=== PATIENT | male | born 1980 | race Caucasian/White ===

== ENCOUNTER 2020-10-14 17:50 | Inpatient (IN) | payer OTHER, SELFPAY ==
[2020-10-14] MEDS ORDERED: Ondansetron PF 4 MG/2 ML Vial SLOW IVP PRN (19:57)
[2020-10-14] MEDS ORDERED: Fentanyl 100 MCG/2 ML VIAL SLOW IVP PRN (19:57)
[2020-10-14] MEDS ORDERED: Milk Of Magnesia 30 ML UDCUP PO PRN (19:57)
[2020-10-14] MEDS ORDERED: traMADol HCl 50 MG TAB PO PRN (19:57)
[2020-10-14] MEDS ORDERED: Communication Order-Pharmacy FS SCH (20:00)
[2020-10-14] MEDS: HYDROcodone/Acetaminophen 5/325 mg Tablet PO PRN ×2 (20:38→23:57)
[2020-10-14 20:42] VITALS: BMI 25.7
[2020-10-15 05:05] LABS: #Eosinphils 0.7 thou/uL (0.0-0.7); #Lymphocytes 2.3 thou/uL (1.20-3.40); #Monocytes 1.2 thou/uL (0.11-0.59); #Neutrophils 10.6 thou/uL (1.40-6.50); %Basophils 0.3 % (0.0-1.0); %Eosinophils 4.5 % (0.0-10.0); %Lymphocytes 15.4 % (21.0-51.0); %Neutrophils 71.8 % (42.0-75.0); Hemoglobin 12.9 g/dL (14.0-18.0); Mean Corpuscular HGB CONC 31.9 g/dL (32.0-36.0); Mean Corpuscular Hemoglobin 29.8 pg (27.0-31.0); Mean Corpuscular Volume 93.4 fL (78.0-98.0); Mean Platelet Volume 7.1 fL (7.4-10.4); Platelet Count 256 thou/uL (130-400); RBC Distribution Width 12.3 % (11.5-14.5); Red Blood Cell (RBC) Count 4.32 mill/uL (4.70-6.10); White Blood Cell (WBC) Count 14.7 thou/uL (4.8-10.8)
[2020-10-15] MEDS: Vancomycin 1.5 GRAM/300 ML BAG 1.5 GM in Premix Bag 1 BAG IVPB SCH ×2 (05:56→19:52)
[2020-10-15] MEDS: HYDROcodone/Acetaminophen 5/325 mg Tablet PO PRN ×2 (05:57→10:10)
[2020-10-15] MEDS ORDERED: CEFAZOLIN 2 GM in Premix Bag 1 BAG IVPB SCH (07:45)
[2020-10-15] MEDS ORDERED: Fentanyl 100 MCG/2 ML VIAL ONE ×2 (15:12→18:16)
[2020-10-15] MEDS ORDERED: PROPOFOL 200 MG/20 ML VIAL ONE (18:28)
[2020-10-15] MEDS ORDERED: Dexamethasone 20 MG/5 ML VIAL ONE (18:28)
[2020-10-15] MEDS ORDERED: Ketorolac Tromethamine 30 MG/ML VIAL ONE (18:28)
[2020-10-15] MEDS ORDERED: Lidocaine 1% PF 5 ML VIAL ONE (18:28)
[2020-10-15] MEDS ORDERED: Ondansetron PF 4 MG/2 ML Vial ONE (18:28)
[2020-10-15] MEDS ORDERED: HYDROmorphone 2 MG/ML VIAL ONE (18:45)
[2020-10-15] MEDS ORDERED: Bupivacaine PF 0.5% 30 ML VIAL ONE (19:09)
[2020-10-15] MEDS ORDERED: HYDROmorphone 2 MG/ML VIAL SLOW IVP PRN (19:30)
[2020-10-15] MEDS ORDERED: Promethazine HCl 25 MG/ML VIAL IM PRN (19:30)
[2020-10-15] MEDS ORDERED: Promethazine HCl 25 MG/ML VIAL IVPB PRN (19:30)
[2020-10-16 06:06] LABS: Vancomycin, Trough 7.5 ug/mL
[2020-10-16] MEDS: Vancomycin 1.5 GRAM/300 ML BAG 1.5 GM in Premix Bag 1 BAG IVPB SCH ×2 (06:18→18:41)
[2020-10-16] MEDS: HYDROcodone/Acetaminophen 5/325 mg Tablet PO PRN ×2 (11:28→18:11)
[2020-10-16 17:13] LABS: HIV (1/2) Antibody/Antigen Non-Reactive (NonReactive); HIV 1/2 INDEX 0.07 S/CO (<1.00); Syphilis Antibody Nonreactive (Nonreactive); Syphilis Antibody Index 0.04 S/CO (<1.00 Non-Reactive)
[2020-10-17 05:18] LABS: Vancomycin, Trough 9.4 ug/mL
[2020-10-17] MEDS ORDERED: Vancomycin 1.5 GRAM/300 ML BAG 1.5 GM in Premix Bag 1 BAG IVPB SCH (06:00)
[2020-10-17] MEDS: HYDROcodone/Acetaminophen 5/325 mg Tablet PO PRN ×2 (09:41→17:13)
[2020-10-17] MEDS: Clindamycin 150 MG CAP PO SCH ×3 (13:22→20:27)
[2020-10-17 21:01] LABS: Sodium 140 mmol/L (136-145)
[2020-10-17 21:02] LABS: ALT (SGPT) 15 U/L (8-55); AST (SGOT) 11 U/L (5-34); Albumin 3.4 g/dL (3.5-5.0); Alkaline Phosphatase 51 U/L (40-110); Anion Gap 11 mmol/L (10-20); BUN (Urea Nitrogen) 11 mg/dL (8.9-20.6); Bilirubin, Total 0.2 mg/dL (0.2-1.2); Calc. Creatinine Clearance 151 mL/min (70-130); Calcium 8.7 mg/dL (7.8-10.44); Carbon Dioxide 30 mmol/L (22-29); Chloride 103 mmol/L (98-107); Globulin 2.7 g/dL (2.4-3.5); Glucose 141 mg/dL (70-105); Potassium 3.6 mmol/L (3.5-5.1); Protein, Total 6.1 g/dL (6.0-8.3)
[2020-10-17 21:31] LABS: Vitamin B12 255 pg/mL (211-911)
[2020-10-17 22:13] LABS: Amphetamine Not Detected (NotDetected); Barbiturates Screen Not Detected (NotDetected); Benzodiazepine Screen Not Detected (NotDetected); Cocaine Metabolite Screen Not Detected (NotDetected); Methadone Not Detected (NotDetected); Methamphetamine Not Detected (NotDetected); Opiate Screen Detected (NotDetected); Oxycodone Screen Not Detected (NotDetected); Phencyclidine (PCP) Not Detected (NotDetected); THC/Cannabinoid Screen Not Detected (NotDetected); Tricyclic Screen Not Detected (NotDetected)
[2020-10-18 01:18] LABS: Hep A IgM AB NonReactive (NonReactive); Hep A IgM S/CO 0.15 S/CO (0-0.79); Hep B Surf AB NonReactive (NonReactive)
[2020-10-18 01:19] LABS: HBSAB Concentration 0.61 mIU/mL; HBSAg Index 0.22 S/CO (0-0.99); Hep B Surf Ag NonReactive S/CO (NonReactive); Hep C IgG Ab NonReactive (NonReactive); Hep C Index 0.08 S/CO (0-0.79)
[2020-10-18] MEDS: HYDROcodone/Acetaminophen 5/325 mg Tablet PO PRN ×2 (08:56→16:51)
[2020-10-18] MEDS: Clindamycin 150 MG CAP PO SCH ×4 (09:00→20:57)
[2020-10-18] MEDS ORDERED: Recombivax (HEP-B) 5 MCG/0.5 ML VIAL IM ONE (09:04)
[2020-10-18] MEDS ORDERED: CEFAZOLIN 2 GM in Premix Bag 1 BAG IVPB SCH (10:00)
[2020-10-19] MEDS: Clindamycin 150 MG CAP PO SCH ×4 (08:10→20:27)
[2020-10-19] MEDS ORDERED: Famotidine/PF 20 mg/2ml Vial ONE (13:33)
[2020-10-19] MEDS ORDERED: Fentanyl 100 MCG/2 ML VIAL ONE ×3 (13:33→15:16)
[2020-10-19] MEDS ORDERED: Midazolam HCl 2 mg/2 ml Vial ONE (13:34)
[2020-10-19] MEDS ORDERED: Dexamethasone 20 MG/5 ML VIAL ONE (13:40)
[2020-10-19] MEDS ORDERED: Metoclopramide HCl 10 MG/2 ML VIAL ONE (13:40)
[2020-10-19] MEDS ORDERED: Ondansetron PF 4 MG/2 ML Vial ONE (13:40)
[2020-10-19] MEDS ORDERED: Lidocaine 1% PF 5 ML VIAL ONE (13:40)
[2020-10-19] MEDS ORDERED: PROPOFOL 200 MG/20 ML VIAL ONE (13:40)
[2020-10-19] MEDS ORDERED: Ketorolac Tromethamine 30 MG/ML VIAL ONE (13:40)
[2020-10-19] MEDS ORDERED: Neomycin-Polymyxin 1 ML AMP ONE (14:27)
[2020-10-19] MEDS ORDERED: Bacitracin Zinc Ointment 30 gm TUBE ONE (14:27)
[2020-10-19] MEDS ORDERED: Meperidine HCl/PF 25 MG/ML VIAL ONE (14:49)
[2020-10-19] MEDS ORDERED: Meperidine HCl/PF 25 MG/ML VIAL SLOW IVP PRN (14:55)
[2020-10-19] MEDS ORDERED: PACU-Morphine 4MG/ML VIAL SLOW IVP PRN (14:55)
[2020-10-19] MEDS ORDERED: Promethazine HCl 25 MG/ML VIAL IM PRN (14:55)
[2020-10-19] MEDS ORDERED: Promethazine HCl 25 MG/ML VIAL IVPB PRN (14:55)
[2020-10-19] MEDS ORDERED: Ondansetron HCl/PF 4 MG/2 ML Vial IVP PRN (14:55)
[2020-10-20] MEDS: HYDROcodone/Acetaminophen 5/325 mg Tablet PO PRN ×3 (08:44→19:35)
[2020-10-20] MEDS: Clindamycin 150 MG CAP PO SCH ×4 (08:45→20:57)
[2020-10-20] MEDS ORDERED: Nicotine 21 MG PATCH TD SCH (11:45)
[2020-10-21] MEDS ORDERED: Neomycin-Polymyxin 1 ML AMP ONE ×2 (07:45→08:04)
[2020-10-21] MEDS ORDERED: CEFAZOLIN 2 GM in Premix Bag 1 BAG IVPB SCH (08:00)
[2020-10-21] MEDS ORDERED: Lidocaine 1% PF 5 ML VIAL ONE (08:02)
[2020-10-21] MEDS ORDERED: PROPOFOL 200 MG/20 ML VIAL ONE (08:02)
[2020-10-21] MEDS ORDERED: Ondansetron PF 4 MG/2 ML Vial ONE (08:02)
[2020-10-21] MEDS ORDERED: Ketorolac Tromethamine 30 MG/ML VIAL ONE (08:02)
[2020-10-21] MEDS ORDERED: Dexamethasone 20 MG/5 ML VIAL ONE (08:02)
[2020-10-21] MEDS ORDERED: Fentanyl 100 MCG/2 ML VIAL ONE (09:06)
[2020-10-21 10:42] LABS: #Eosinphils 0.3 thou/uL (0.0-0.7); #Lymphocytes 1.8 thou/uL (1.20-3.40); #Monocytes 0.4 thou/uL (0.11-0.59); #Neutrophils 7.1 thou/uL (1.40-6.50); %Basophils 0.4 % (0.0-1.0); %Eosinophils 2.9 % (0.0-10.0); %Lymphocytes 19.1 % (21.0-51.0); %Neutrophils 73.7 % (42.0-75.0); Hemoglobin 9.9 g/dL (14.0-18.0); Mean Corpuscular HGB CONC 33.6 g/dL (32.0-36.0); Mean Corpuscular Hemoglobin 32.1 pg (27.0-31.0); Mean Corpuscular Volume 95.5 fL (78.0-98.0); Mean Platelet Volume 6.6 fL (7.4-10.4); Platelet Count 217 thou/uL (130-400); Red Blood Cell (RBC) Count 3.09 mill/uL (4.70-6.10); White Blood Cell (WBC) Count 9.7 thou/uL (4.8-10.8)
[2020-10-21] MEDS: Clindamycin 150 MG CAP PO SCH ×4 (10:56→21:26)
[2020-10-21] MEDS: Nicotine 21 MG PATCH TD SCH (10:56)
[2020-10-21] MEDS: Acetaminophen 325 MG TAB PO PRN (17:20)
[2020-10-22] MEDS: HYDROcodone/Acetaminophen 5/325 mg Tablet PO PRN ×2 (09:21→17:15)
[2020-10-22] MEDS: Clindamycin 150 MG CAP PO SCH ×4 (09:21→21:13)
[2020-10-22] MEDS: Nicotine 21 MG PATCH TD SCH (09:23)
[2020-10-23] MEDS: HYDROcodone/Acetaminophen 5/325 mg Tablet PO PRN ×2 (08:24→17:08)
[2020-10-23] MEDS: Clindamycin 150 MG CAP PO SCH ×4 (08:24→20:41)
[2020-10-23] MEDS: Nicotine 21 MG PATCH TD SCH (08:25)
[2020-10-24] MEDS: Clindamycin 150 MG CAP PO SCH ×4 (08:48→20:41)
[2020-10-24] MEDS: Nicotine 21 MG PATCH TD SCH (08:48)
[2020-10-24] MEDS: HYDROcodone/Acetaminophen 5/325 mg Tablet PO PRN ×3 (08:57→20:43)
[2020-10-25] MEDS: Acetaminophen 325 MG TAB PO PRN ×2 (09:26→20:36)
[2020-10-25] MEDS: Clindamycin 150 MG CAP PO SCH ×4 (09:26→20:36)
[2020-10-25] MEDS: Nicotine 21 MG PATCH TD SCH (09:27)
[2020-10-25] MEDS ORDERED: CEFAZOLIN 2 GM in Premix Bag 1 BAG IVPB SCH (11:30)
[2020-10-26] MEDS ORDERED: Neomycin-Polymyxin 1 ML AMP ONE (06:43)
[2020-10-26] MEDS ORDERED: Midazolam HCl 2 mg/2 ml Vial ONE (07:08)
[2020-10-26] MEDS ORDERED: Fentanyl 100 MCG/2 ML VIAL ONE ×2 (07:08→08:38)
[2020-10-26] MEDS ORDERED: Lidocaine 1% PF 5 ML VIAL ONE (07:35)
[2020-10-26] MEDS ORDERED: PROPOFOL 200 MG/20 ML VIAL ONE (07:35)
[2020-10-26] MEDS ORDERED: Ondansetron PF 4 MG/2 ML Vial ONE (07:35)
[2020-10-26] MEDS ORDERED: Succinylcholine 200 MG/10 ml SYRINGE FS ONE (07:35)
[2020-10-26] MEDS ORDERED: Promethazine HCl 25 MG/ML VIAL IVPB PRN (08:38)
[2020-10-26] MEDS ORDERED: Ondansetron HCl/PF 4 MG/2 ML Vial IVP PRN (08:38)
[2020-10-26] MEDS ORDERED: Meperidine HCl/PF 25 MG/ML VIAL SLOW IVP PRN (08:38)
[2020-10-26] MEDS ORDERED: Ketorolac Tromethamine 30 MG/ML VIAL IVP PRN (08:38)
[2020-10-26] MEDS ORDERED: Meperidine HCl/PF 25 MG/ML VIAL ONE (08:43)
[2020-10-26] MEDS ORDERED: Ketorolac Tromethamine 30 MG/ML VIAL ONE (08:43)
[2020-10-26] MEDS: Nicotine 21 MG PATCH TD SCH (09:36)
[2020-10-26] MEDS: Clindamycin 150 MG CAP PO SCH ×4 (09:36→20:35)
[2020-10-26] MEDS: Acetaminophen 325 MG TAB PO PRN (16:54)
[2020-10-27] MEDS: Acetaminophen 325 MG TAB PO PRN (01:30)
[2020-10-27] MEDS: Clindamycin 150 MG CAP PO SCH ×4 (10:03→21:54)
[2020-10-27] MEDS: Nicotine 21 MG PATCH TD SCH (10:04)
[2020-10-28] MEDS: Nicotine 21 MG PATCH TD SCH (09:23)
[2020-10-28] MEDS: Acetaminophen 325 MG TAB PO PRN (11:22)
[2020-10-29] MEDS: Nicotine 21 MG PATCH TD SCH (08:15)
[2020-10-29] MEDS: Acetaminophen 325 MG TAB PO PRN ×2 (08:18→21:02)
[2020-10-30] MEDS: Nicotine 21 MG PATCH TD SCH (08:18)
[2020-10-30 19:29] LABS: SARS-CoV-2 NAA Rapid Test Not Detected (NotDetected)
[2020-10-30] MEDS ORDERED: HYDROmorphone 0.5 MG/0.5 ML SYRINGE ONE (20:47)
[2020-10-30] MEDS ORDERED: Fentanyl 100 MCG/2 ML VIAL ONE (20:47)
[2020-10-30] MEDS ORDERED: Bupivacaine PF 0.5% 30 ML VIAL ONE (20:50)
[2020-10-30] MEDS ORDERED: Bacitracin Zinc Ointment 30 gm TUBE ONE (20:51)
[2020-10-30] MEDS ORDERED: Neomycin-Polymyxin 1 ML AMP ONE (20:51)
[2020-10-30] MEDS ORDERED: Thrombin 5000 UNITS/5 ML VIAL ONE (20:51)
[2020-10-30] MEDS ORDERED: Lidocaine 2% PF 5 ML VIAL ONE (21:16)
[2020-10-30] MEDS ORDERED: Ketorolac Tromethamine 30 MG/ML VIAL ONE (21:16)
[2020-10-30] MEDS ORDERED: Ondansetron PF 4 MG/2 ML Vial ONE (21:16)
[2020-10-30] MEDS ORDERED: Dexamethasone 20 MG/5 ML VIAL ONE (21:16)
[2020-10-30] MEDS ORDERED: diphenhydrAMINE 50 MG/ML VIAL ONE (21:16)
[2020-10-30] MEDS ORDERED: Rocuronium Bromide 10 MG/ML (10ML VIAL) ONE (21:16)
[2020-10-30] MEDS ORDERED: ePHEDrine 50 MG/ML VIAL ONE (21:16)
[2020-10-30] MEDS ORDERED: PROPOFOL 200 MG/20 ML VIAL ONE (21:16)
[2020-10-30] MEDS ORDERED: Mineral Oil Sterile 10ML 10 ML UDCUP ONE (21:40)
[2020-10-30] MEDS ORDERED: HYDROmorphone 2 MG/ML VIAL SLOW IVP PRN (23:35)
[2020-10-30] MEDS ORDERED: Ondansetron HCl/PF 4 MG/2 ML Vial IVP PRN (23:35)
[2020-10-30] MEDS ORDERED: Meperidine HCl/PF 25 MG/ML VIAL SLOW IVP PRN (23:35)
[2020-10-30] MEDS ORDERED: Morphine Sulfate 2 MG/ML SYRINGE SLOW IVP PRN (23:35)
[2020-10-30] MEDS ORDERED: Promethazine HCl 25 MG/ML VIAL IM PRN (23:35)
[2020-10-30] MEDS ORDERED: Promethazine HCl 25 MG/ML VIAL IVPB PRN (23:35)
[2020-10-31] MEDS ORDERED: Fentanyl 100 MCG/2 ML VIAL ONE (00:13)
[2020-10-31] MEDS: Acetaminophen 325 MG TAB PO PRN (06:18)
[2020-10-31] MEDS: Nicotine 21 MG PATCH TD SCH (08:58)
[2020-10-31] MEDS ORDERED: HYDROcodone/Acetaminophen 7.5/325 mg Tablet PO PRN (09:49)
[2020-10-31] MEDS: HYDROcodone/Acetaminophen 7.5/325 mg Tablet PO PRN ×3 (10:19→21:37)
[2020-11-01] MEDS: Nicotine 21 MG PATCH TD SCH (08:47)
[2020-11-01] MEDS ORDERED: Ibuprofen 600 MG TAB PO PRN (12:43)
[2020-11-02] MEDS: Nicotine 21 MG PATCH TD SCH (10:05)
[2020-11-02 15:00] VITALS: BP 124/81; TEMP 97.7
== END 2020-11-02 18:19 | disposition home or self-care (01) | DRG 513 ==
LOC: OBSVTOIN 17:50 → ONC 17:50 → SURG B 10-23 22:37
PROVIDERS: ADMIT Orthopaedic Surgery; ATTEND Orthopaedic Surgery
PROC: 0PBR0ZZ Excision of Right Thumb Phalanx, Open Approach (ICD-10-PCS; 2020-10-15)
PROC: 0LB70ZZ Excision of Right Hand Tendon, Open Approach (ICD-10-PCS; principal; 2020-10-19)
PROC: 0H9FXZZ Drainage of Right Hand Skin, External Approach (ICD-10-PCS; 2020-10-21)
PROC: 0JDJ0ZZ Extraction of Right Hand Subcutaneous Tissue and Fascia, Open Approach (ICD-10-PCS; 2020-10-26)
DX: M65.141 Other infective (teno)synovitis, right hand (principal); L02.511 Cutaneous abscess of right hand; B95.62 Methicillin resistant Staphylococcus aureus infection as the cause of diseases classified elsewhere; Z20.822 Contact with and (suspected) exposure to COVID-19; F17.210 Nicotine dependence, cigarettes, uncomplicated; F15.10 Other stimulant abuse, uncomplicated; F12.10 Cannabis abuse, uncomplicated; F20.9 Schizophrenia, unspecified; Z28.21 Immunization not carried out because of patient refusal; Z59.0 Homelessness; Z81.8 Family history of other mental and behavioral disorders; Z83.0 Family history of human immunodeficiency virus [HIV] disease; Z83.1 Family history of other infectious and parasitic diseases
CPT/HCPCS: 36415; 80053; 80202; 80306; 82607; 82746; 84207; 84425; 84443; 85025; 86706; 86709; 86780; 86803; 87070; 87077; 87186; 87205; 87340; 87389; C9363-KX-JC; J0690; J1100; J1170; J1200; J1885; J2001; J2175; J2250; J2405; J2704; J2765; J3010; J3370; J3490; S0020; S0028; U0002

== ENCOUNTER 2020-11-09 07:45 | Emergency (ER) | payer OTHER ==
[2020-11-09 09:56] LABS: #Basophils 0.1 thou/uL (0.0-0.2); #Eosinphils 0.4 thou/uL (0.0-0.7); #Monocytes 0.6 thou/uL (0.11-0.59); #Neutrophils 3.4 thou/uL (1.40-6.50); %Eosinophils 6.7 % (0.0-10.0); %Lymphocytes 31.2 % (21.0-51.0); %Monocytes 8.8 % (0.0-10.0); %Neutrophils 52.3 % (42.0-75.0); Hemoglobin 12.7 g/dL (14.0-18.0); Mean Corpuscular Hemoglobin 31.1 pg (27.0-31.0); Mean Corpuscular Volume 91.5 fL (78.0-98.0); Mean Platelet Volume 7.5 fL (7.4-10.4); Platelet Count 182 thou/uL (130-400); RBC Distribution Width 12.3 % (11.5-14.5); Red Blood Cell (RBC) Count 4.07 mill/uL (4.70-6.10); White Blood Cell (WBC) Count 6.5 thou/uL (4.8-10.8)
== END 2020-11-09 11:39 | disposition home or self-care (01) ==
LOC: ERS 07:45
DX: Z48.00 Encounter for change or removal of nonsurgical wound dressing (principal); F17.210 Nicotine dependence, cigarettes, uncomplicated
CPT/HCPCS: 36415; 85025; 99283

== ENCOUNTER 2020-11-13 08:53 | Observation (INO) | payer OTHER, SELFPAY ==
[2020-11-13 10:11] LABS: #Basophils 0.1 thou/uL (0.0-0.2); #Eosinphils 0.3 thou/uL (0.0-0.7); #Lymphocytes 2.3 thou/uL (1.20-3.40); #Monocytes 1.2 thou/uL (0.11-0.59); #Neutrophils 9.9 thou/uL (1.40-6.50); %Basophils 0.5 % (0.0-1.0); %Eosinophils 1.9 % (0.0-10.0); %Lymphocytes 16.6 % (21.0-51.0); %Monocytes 8.9 % (0.0-10.0); %Neutrophils 72.2 % (42.0-75.0); Hemoglobin 15.5 g/dL (14.0-18.0); Mean Corpuscular HGB CONC 34.7 g/dL (32.0-36.0); Mean Corpuscular Hemoglobin 30.9 pg (27.0-31.0); Mean Corpuscular Volume 88.9 fL (78.0-98.0); Mean Platelet Volume 7.3 fL (7.4-10.4); Platelet Count 229 thou/uL (130-400); RBC Distribution Width 12.5 % (11.5-14.5); Red Blood Cell (RBC) Count 5.03 mill/uL (4.70-6.10); White Blood Cell (WBC) Count 13.7 thou/uL (4.8-10.8)
[2020-11-13 12:19] LABS: SARS-CoV-2 NAA Rapid Test Not Detected (NotDetected)
[2020-11-13] MEDS ORDERED: Fentanyl 100 MCG/2 ML VIAL ONE (14:20)
[2020-11-13] MEDS ORDERED: Bupivacaine PF 0.5% 30 ML VIAL ONE (14:43)
[2020-11-13] MEDS ORDERED: Neomycin-Polymyxin 1 ML AMP ONE (14:43)
[2020-11-13] MEDS ORDERED: Bacitracin Zinc Ointment 30 gm TUBE ONE (14:43)
[2020-11-13] MEDS ORDERED: Famotidine/PF 20 mg/2ml Vial ONE (14:43)
[2020-11-13] MEDS ORDERED: Thrombin 5000 UNITS/5 ML VIAL ONE (14:43)
[2020-11-13] MEDS ORDERED: Midazolam HCl 2 mg/2 ml Vial ONE (14:44)
[2020-11-13 14:46] LABS: ALT (SGPT) 34 U/L (8-55); AST (SGOT) 74 U/L (5-34); Albumin 4.7 g/dL (3.5-5.0); Alkaline Phosphatase 61 U/L (40-110); Anion Gap 16 mmol/L (10-20); BUN (Urea Nitrogen) 45 mg/dL (8.9-20.6); Bilirubin, Total 0.9 mg/dL (0.2-1.2); Calc. Creatinine Clearance 0 mL/min (70-130); Calcium 9.7 mg/dL (7.8-10.44); Carbon Dioxide 25 mmol/L (22-29); Chloride 97 mmol/L (98-107); Globulin 2.9 g/dL (2.4-3.5); Glucose 94 mg/dL (70-105); Potassium 3.4 mmol/L (3.5-5.1); Protein, Total 7.6 g/dL (6.0-8.3); Sodium 135 mmol/L (136-145)
[2020-11-13] MEDS ORDERED: Dexamethasone 20 MG/5 ML VIAL ONE (14:59)
[2020-11-13] MEDS ORDERED: PROPOFOL 200 MG/20 ML VIAL ONE (14:59)
[2020-11-13] MEDS ORDERED: Ketorolac Tromethamine 30 MG/ML VIAL ONE (14:59)
[2020-11-13] MEDS ORDERED: Ondansetron PF 4 MG/2 ML Vial ONE (14:59)
[2020-11-13] MEDS ORDERED: Lidocaine 1% PF 5 ML VIAL ONE (14:59)
[2020-11-13] MEDS ORDERED: traMADol HCl 50 MG TAB PO PRN (15:19)
[2020-11-13] MEDS ORDERED: Milk Of Magnesia 30 ML UDCUP PO PRN (15:19)
[2020-11-13] MEDS ORDERED: Promethazine HCl 25 MG/ML VIAL IM PRN ×2 (15:19→15:52)
[2020-11-13] MEDS ORDERED: Bisacodyl 10 MG SUPP PR PRN (15:19)
[2020-11-13] MEDS ORDERED: Ondansetron PF 4 MG/2 ML Vial IVP PRN (15:19)
[2020-11-13] MEDS ORDERED: Morphine 2 MG/ML VIAL SLOW IVP PRN (15:19)
[2020-11-13] MEDS ORDERED: Meperidine HCl/PF 25 MG/ML VIAL IM PRN (15:22)
[2020-11-13] MEDS ORDERED: Ketorolac Tromethamine 30 MG/ML VIAL IVP PRN (15:22)
[2020-11-13] MEDS ORDERED: Vancomycin 1 GM in Premix Bag 1 BAG IVPB SCH (15:30)
[2020-11-13] MEDS ORDERED: Mineral Oil Sterile 10 ML VIAL ONE (15:50)
[2020-11-13] MEDS ORDERED: HYDROmorphone 2 MG/ML VIAL SLOW IVP PRN (15:52)
[2020-11-13] MEDS ORDERED: Ondansetron HCl/PF 4 MG/2 ML Vial IVP PRN (15:52)
[2020-11-13] MEDS ORDERED: Promethazine HCl 25 MG/ML VIAL IVPB PRN (15:52)
[2020-11-13] MEDS ORDERED: Meperidine HCl/PF 25 MG/ML VIAL SLOW IVP PRN (15:52)
[2020-11-13] MEDS ORDERED: Midazolam HCl 2 mg/2 ml Vial SLOW IVP PRN (16:29)
[2020-11-13] MEDS ORDERED: VANCOMYCIN 2 GRAM/400 ML BAG 2 GM in Premix Bag 1 BAG IVPB SCH ×3 (16:45→18:30)
[2020-11-13] MEDS ORDERED: Haloperidol Lactate 5 MG/ML VIAL IM PRN (16:46)
[2020-11-13 18:50] VITALS: BMI 26.9
[2020-11-13] MEDS: Aspirin 81 mg Enteric Coated Tablet PO SCH (20:24)
[2020-11-13] MEDS: HYDROcodone/Acetaminophen 5/325 mg Tablet PO PRN (20:25)
[2020-11-14] MEDS ORDERED: Vancomycin 1.5 GRAM/300 ML BAG 1.5 GM in Premix Bag 1 BAG IVPB SCH ×2 (01:00→02:00)
[2020-11-14] MEDS ORDERED: Vancomycin 1.5 GRAM/300 ML BAG 1 GM in Premix Bag 1 BAG IVPB SCH (01:00)
[2020-11-14] MEDS: HYDROcodone/Acetaminophen 5/325 mg Tablet PO PRN ×3 (04:11→12:43)
[2020-11-14] MEDS: Aspirin 81 mg Enteric Coated Tablet PO SCH (09:18)
[2020-11-14] MEDS ORDERED: TETANUS AND DIPHTHERIA TOX/PF 0.5 ML DISP.SYRIN IM SCH (15:30)
[2020-11-14 16:27] VITALS: BP 134/87; TEMP 97.7
[2020-11-14] MEDS ORDERED: VANCOMYCIN 2 GRAM/400 ML BAG 2 GM in Premix Bag 1 BAG IVPB SCH (18:00)
== END 2020-11-14 16:52 | disposition home or self-care (01) ==
LOC: ERS 08:53 → SURG A 15:19 → SJJU 17:21
PROVIDERS: ADMIT Orthopaedic Surgery Hand Surgery; ATTEND Orthopaedic Surgery Hand Surgery
PROC: 0HR Skin and Breast, Replacement (ICD-10-PCS; principal; 2020-11-13)
DX: T85.69 Other mechanical complication of other specified internal prosthetic devices, implants and grafts (principal); F20.0 Paranoid schizophrenia; F12.10 Cannabis abuse, uncomplicated; F15.10 Other stimulant abuse, uncomplicated; F17.210 Nicotine dependence, cigarettes, uncomplicated; Z59.0 Homelessness; Z20.822 Contact with and (suspected) exposure to COVID-19
CPT/HCPCS: 36415; 80053; 85025; 96374; C9363-KX-JC; G0378; J0690; J1100; J1885; J2250; J2405; J2704; J3010; J3370; S0020; S0028; U0002

== ENCOUNTER 2020-11-23 17:43 | Emergency (ER) | payer OTHER ==
[2020-11-23] MEDS ORDERED: Bacitracin 1 PK ONE (20:13)
== END 2020-11-23 20:45 | disposition home or self-care (01) ==
LOC: ERS 17:43
DX: M65.841 Other synovitis and tenosynovitis, right hand (principal); F17.210 Nicotine dependence, cigarettes, uncomplicated; Z79.899 Other long term (current) drug therapy
CPT/HCPCS: 99283

== ENCOUNTER 2020-11-28 10:38 | Outpatient (CLI) | payer SELFPAY ==
[2020-11-28 19:28] LABS: SARS-CoV-2 PCR by NAA Not Detected (NotDetected)
== END 2020-11-28 10:39 | disposition home or self-care (01) ==
LOC: LABBT 10:38
PROVIDERS: ATTEND Orthopaedic Surgery Hand Surgery
DX: Z01.812 Encounter for preprocedural laboratory examination (principal); S61.001A Unspecified open wound of right thumb without damage to nail, initial encounter; Z20.822 Contact with and (suspected) exposure to COVID-19
CPT/HCPCS: U0003; U0005

== ENCOUNTER 2020-12-03 12:31 | Inpatient (IN) | payer SELFPAY ==
[2020-12-03] MEDS ORDERED: Midazolam HCl 2 mg/2 ml Vial ONE (15:15)
[2020-12-03] MEDS ORDERED: Fentanyl 100 MCG/2 ML VIAL ONE ×2 (15:15→17:48)
[2020-12-03] MEDS ORDERED: Thrombin 5000 UNITS/5 ML VIAL ONE (15:24)
[2020-12-03] MEDS ORDERED: Mineral Oil Sterile 10 ML VIAL ONE (15:24)
[2020-12-03] MEDS ORDERED: Bacitracin Zinc Ointment 30 gm TUBE ONE (15:24)
[2020-12-03] MEDS ORDERED: Bupivacaine 0.25% HCL 30 ML VIAL ONE (15:24)
[2020-12-03] MEDS ORDERED: Dexamethasone 20 MG/5 ML VIAL ONE (15:51)
[2020-12-03] MEDS ORDERED: Lidocaine 1% PF 5 ML VIAL ONE (15:51)
[2020-12-03] MEDS ORDERED: PROPOFOL 200 MG/20 ML VIAL ONE (15:51)
[2020-12-03] MEDS ORDERED: ePHEDrine 50 MG/ML VIAL ONE (15:51)
[2020-12-03] MEDS ORDERED: Ondansetron PF 4 MG/2 ML Vial ONE (15:51)
[2020-12-03] MEDS ORDERED: Ketorolac Tromethamine 30 MG/ML VIAL ONE (17:39)
[2020-12-03] MEDS ORDERED: Acetaminophen 325 MG TAB PO PRN (17:49)
[2020-12-03] MEDS ORDERED: Milk Of Magnesia 30 ML UDCUP PO PRN (17:49)
[2020-12-03] MEDS ORDERED: Acetaminophen/Codeine 30-300mg Tablet PO PRN (17:49)
[2020-12-03] MEDS ORDERED: traMADol HCl 50 MG TAB PO PRN (17:49)
[2020-12-03] MEDS ORDERED: Ondansetron PF 4 MG/2 ML Vial SLOW IVP PRN (17:49)
[2020-12-03] MEDS ORDERED: HYDROcodone/Acetaminophen 10/325 mg Tablet PO PRN (17:49)
[2020-12-03] MEDS ORDERED: Morphine 4 MG/ML VIAL SLOW IVP PRN (17:49)
[2020-12-03] MEDS ORDERED: Promethazine HCl 25 MG/ML VIAL IM PRN (17:49)
[2020-12-03] MEDS ORDERED: Communication Order-Pharmacy FS SCH (18:00)
[2020-12-03] MEDS ORDERED: Ketorolac Tromethamine 30 MG/ML VIAL IVP PRN (18:03)
[2020-12-03] MEDS ORDERED: TETANUS AND DIPHTHERIA TOX/PF 0.5 ML DISP.SYRIN IM SCH (19:15)
[2020-12-03] MEDS ORDERED: Vancomycin 1.5 GRAM/300 ML BAG 1.5 GM in Premix Bag 1 BAG IVPB SCH (19:45)
[2020-12-03] MEDS: Sodium Chloride 0.9% 1,000 ML IV SCH (22:02)
[2020-12-03] MEDS: Aspirin 81 mg Enteric Coated Tablet PO SCH (22:03)
[2020-12-03] MEDS: HYDROcodone/Acetaminophen 5/325 mg Tablet PO PRN (22:08)
[2020-12-03 22:17] VITALS: BMI 27.0
[2020-12-04] MEDS: Sodium Chloride 0.9% 1,000 ML IV SCH ×2 (03:29→18:14)
[2020-12-04] MEDS: HYDROcodone/Acetaminophen 5/325 mg Tablet PO PRN ×3 (07:52→17:55)
[2020-12-04] MEDS: Aspirin 81 mg Enteric Coated Tablet PO SCH ×2 (07:53→20:09)
[2020-12-04] MEDS ORDERED: TETANUS AND DIPHTHERIA TOX/PF 0.5 ML DISP.SYRIN IM SCH (17:00)
[2020-12-05] MEDS: Sodium Chloride 0.9% 1,000 ML IV SCH ×2 (00:22→08:16)
[2020-12-05] MEDS: Aspirin 81 mg Enteric Coated Tablet PO SCH (08:15)
[2020-12-05 14:21] VITALS: BP 139/84; TEMP 98.5
== END 2020-12-05 14:55 | disposition home or self-care (01) | DRG 906 ==
LOC: SDC 12:31 → SJJU 17:45 → INTOOBSV 17:45 → OBSVTOIN 17:49
PROVIDERS: ADMIT Orthopaedic Surgery Hand Surgery; ATTEND Orthopaedic Surgery Hand Surgery
PROC: 0HRFX73 Replacement of Right Hand Skin with Autologous Tissue Substitute, Full Thickness, External Approach (ICD-10-PCS; principal; 2020-12-03)
PROC: 0HBDXZZ Excision of Right Lower Arm Skin, External Approach (ICD-10-PCS; 2020-12-03)
PROC: 0XP6XYZ Removal of Other Device from Right Upper Extremity, External Approach (ICD-10-PCS; 2020-12-03)
DX: T81.89XA Other complications of procedures, not elsewhere classified, initial encounter (principal); Y83.8 Other surgical procedures as the cause of abnormal reaction of the patient, or of later complication, without mention of misadventure at the time of the procedure; F17.210 Nicotine dependence, cigarettes, uncomplicated; F20.9 Schizophrenia, unspecified; Z59.00 Homelessness unspecified; Z20.822 Contact with and (suspected) exposure to COVID-19
CPT/HCPCS: 90714; J1100; J1885; J2250; J2405; J2704; J3010; J3370; J3490; S0020